=== PATIENT | female | born 1995 | race Caucasian/White ===

== ENCOUNTER 2022-07-27 15:53 | Outpatient (CLI) | payer BC, SELFPAY ==
[2022-07-29 17:01] LABS: Estradiol Premenol Female 68 pg/mL
[2022-07-30 03:02] LABS: Prolactin 8.5 ng/mL (2.8-29.2)
[2022-07-30 10:09] LABS: Follicle Stimulating Hormone 7.5 IU/L
[2022-08-02 19:06] LABS: 17-Hydroxyprogesterone HPLC 60.55 ng/dL (<=206.00)
[2022-08-02 22:54] LABS: Sex Hormone Binding Globulin 71 nmol/L (25-122); Testosterone Bioavailable 14.5 ng/dL (2.2-20.6); Testosterone, Free LC-MS/MS 4.8 pg/mL (0.8-7.4); Testosterone, LC-MS/MS 48 ng/dL (9-55)
== END 2022-07-27 15:54 | disposition home or self-care (01) ==
PROVIDERS: PCP Family Medicine; Visit Provider Registered Nurse
DX: N91.5 Oligomenorrhea, unspecified (principal)
CPT/HCPCS: 82670; 83001; 83498; 84146; 84270; 84402; 84403; 84443

== ENCOUNTER 2022-08-10 16:08 | Outpatient (CLI) | payer BC, SELFPAY ==
[2022-08-10 17:34] LABS: Cholesterol* 143 mg/dL (90-199)
[2022-08-10 17:35] LABS: Glucose* 80 mg/dL (60-115); HDL Cholesterol* 54 mg/dL (>=50); LDL Cholesterol Calculated 79 mg/dL (<100); Triglycerides* 48 mg/dL (40-149)
== END 2022-08-10 16:09 | disposition home or self-care (01) ==
PROVIDERS: PCP Family Medicine; Visit Provider Registered Nurse
DX: Z01.419 Encounter for gynecological examination (general) (routine) without abnormal findings (principal); Z13.6 Encounter for screening for cardiovascular disorders; Z13.1 Encounter for screening for diabetes mellitus
CPT/HCPCS: 80061; 82947

== ENCOUNTER 2022-08-30 10:35 | Outpatient (CLI) | payer BC, SELFPAY ==
--- NOTE | 2022-08-30 11:00 | CRLHL7_ITS ---
For Patients: As a result of the Century Cures Act, medical imaging exams and procedure reports are released immediately into your electronic medical record. You may view this report before your referring provider. If you have questions, please contact your health care provider. Indication: Infertility Technique: Hysterosalpingogram performed. Fluoroscopic time 1 minutes 31 seconds. IMPRESSION: Endometrial canal appears normal without filling defect. Normal cornua. Wispy contrast extends from the left fallopian tube into the peritoneal cavity. No definitive contrast opacification of the right fallopian tube. Dictated by Paevl Rangel MD @ 08/30/2022 12:23:28 PM (Electronically Signed)
--- NOTE | 2022-08-30 11:49 | P.GYNPRC_ITS ---
Procedure Note Time Seen by Provider: 11:30 Date Seen: 08/30/22 Procedure Details: DATE: August 30, 2022 PREPROCEDURE DIAGNOSIS: Infertility workup. POSTPROCEDURE DIAGNOSIS: 1. Normal uterine cavity 2. Patent left fallopian tube 3. Blocked right fallopian tube NAME OF PROCEDURE: Hysterosalpingogram. ANESTHESIA: None. COMPLICATIONS: None. PROCEDURE: Upon meeting the patient, she was already very tearful and anxious appearing. Her is with her for comfort. She states that she has a lot of anxiety around vaginal exams and states that during her delivery, she had the most excruciating pain with insertion of a Alexander catheter into her bladder. I discussed with her that this catheter will be placed into her uterus instead of bladder. The pain will be cameron to menstrual cramps. I also emphasized that she can asked me to stop at anytime. I did ask her if she still wish to proceed and she said yes. After obtaining consent, the patient was placed in the dorsal lithotomy position on the x-ray table. An open-sided bivalve speculum was introduced into the vagina and the cervix easily visualized. The cervix and vagina were then prepped with Betadine. The anterior lip of the cervix was grasped with a single-tooth tenaculum for traction. A balloon tipped double- lumen catheter was then gently inserted through the cervical opening into the uterine cavity to the level of the fundus. The balloon was insufflated with 3 mL of air. The tenaculum and speculum were removed. The patient was repositioned in the supine position, covered, and the radiologist was called to the room. Overall, patient did very well throughout the whole process, she did not have excess movements or express any pain out of proportion with exam. However, she continues to sob throughout but she states it's not due to pain but anxiety. She wishes to continue and hysterosalpingogram was then performed. A total of 30 cc of Optiray 300 water soluble contrast dye was injected through the double-lumen catheter under moderate pressure. There was immediate fill of the uterine cavity to the cornua and immediate fill of left fallopian tubes and free spillage of dye on left side with no dye spilling on the right side. Dye was injected x 2. The balloon was deflated. The catheter was removed. She endorses moderate cramping discomfort during and just after the procedure. She was discharged to home in stable condition.
== END 2022-08-30 10:36 | disposition home or self-care (01) ==
LOC: RAD 10:36
PROVIDERS: PCP Family Medicine; Visit Provider Registered Nurse
DX: N97.9 Female infertility, unspecified (principal)
CPT/HCPCS: 58340; 74740; A4649; Q9967

== ENCOUNTER 2022-09-13 08:07 | Outpatient (CLI) | payer BC, SELFPAY ==
[2022-09-15 17:46] LABS: Progesterone, HPLC-MS/MS 5.72 ng/mL
== END 2022-09-13 08:08 | disposition home or self-care (01) ==
LOC: NFLDREF 08:08
PROVIDERS: PCP Family Medicine; Visit Provider Registered Nurse
DX: Z31.9 Encounter for procreative management, unspecified (principal)
CPT/HCPCS: 84144

== ENCOUNTER 2023-09-06 13:34 | Outpatient (CLI) | payer BC, SELFPAY | END 2023-09-06 13:35 | disposition home or self-care (01) | LOC: NFLDREF 09-07 11:35 | PROVIDERS: PCP Family Medicine; Referring Provider Family Medicine; Visit Provider Physician Assistant | DX: R10.9 Unspecified abdominal pain (principal); N39.0 Urinary tract infection, site not specified; N94.6 Dysmenorrhea, unspecified | CPT/HCPCS: 87086; 87186 ==

== ENCOUNTER 2024-02-16 17:40 | Outpatient (CLI) | payer OTHER, SELFPAY | END 2024-02-16 17:41 | disposition home or self-care (01) | LOC: NFLDREF 02-19 11:30 | PROVIDERS: PCP Family Medicine; Referring Provider Family Medicine; Visit Provider Nurse Practitioner Family | DX: N30.90 Cystitis, unspecified without hematuria (principal) | CPT/HCPCS: 87086; 87186 ==

== ENCOUNTER 2024-03-26 07:46 | Emergency (ER) | payer OTHER, SELFPAY ==
[2024-03-26 07:53] VITALS: BP 107/72; PULSE 95; RESP 18; TEMP 36.8; O2SAT 99; BMI 25.6
--- NOTE | 2024-03-26 08:27 | CRLHL7_ITS ---
For Patients: As a result of the 21st Century Cures Act, medical imaging exams and procedure reports are released immediately into your electronic medical record. You may view this report before your referring provider. If you have questions, please contact your health care provider. INDICATION: RLQ pain and Right Flank Pain. N/V x9hrs. (Sic) COMPARISON: None available. TECHNIQUE: CT of the abdomen and pelvis with 69 cc of Isovue 370 intravenous contrast. Please note that all CT scans at this facility use dose modulation, iterative reconstruction, and/or weight-based dosing when appropriate to reduce radiation dose to as low as reasonably achievable. FINDINGS: ABDOMEN Liver: Normal hepatic attenuation. Too small to characterize round circumscribed homogeneous uniform low-density findings worrisome between segments 6 and 7 (2; 35) statistically likely to represent a cyst for which no further workup for ongoing imaging surveillance is indicated in the absence of an established history of malignancy and in the absence of a significant underlying liver disease. No suspicious focal hepatic lesion. No intrahepatic biliary ductal dilatation. Patent portal and hepatic veins. Gallbladder: Normal gallbladder size. Normal common duct caliber. No pericholecystic inflammatory changes. Pancreas: Normal pancreatic attenuation. No focal lesion. Normal duct caliber. No peripancreatic inflammatory changes. Spleen: Normal splenic attenuation. No suspicious focal lesion. Patent splenic artery and vein. Adrenal Glands: Symmetrical adrenal glands. No focal lesion of significance. Kidneys: Nonuniform asymmetric dilatation of the right ureter to the level of the ureterovesical junction without an obstructing lesion identified or abrupt point of transition. Diffuse circumferential right ureteral mural hyperenhancement with associated enhancement of the urothelium right extrarenal pelvis. Bilateral extrarenal pelves. Normal bilateral renal attenuation. No suspicious focal lesion. No obstructing urolith. Patent renal arteries and veins. Gastrointestinal tract: Normal caliber, attenuation and wall thickness of the gastrointestinal tract. No inflammatory changes. Normal mesentery. Normal appendix. Vascular: Abdominal aorta and its major proximal branches including the celiac, superior mesenteric, inferior mesenteric, renal, and bilateral common iliac arteries are patent. Inferior vena cava, portal and superior mesenteric veins are patent. Additional findings: No incidental adenopathy. No significant ascites, free fluid or pneumoperitoneum. PELVIS No bladder lesion is identified. Diffuse enlargement and heterogeneity of the uterus which could be due to adenomyosis. This can be further characterized with a nonemergent pelvic ultrasound if clinically appropriate. No abnormal free fluid. No incidental adenopathy. SKELETON AND BODY WALL No acute or suspicious incidental findings. Incidental congenital/developmental posterior midline sagittal cleft of the T11 vertebral body. LOWER THORAX Right lower lobe dependent hypoventilatory changes are noted incidentally. Partially included lower thoracic wall, lungs, pleural spaces and mediastinum are otherwise without significant incidental findings. IMPRESSION: 1. Diffuse circumferential right ureteral mural hyperenhancement with associated enhancement of the urothelium right extrarenal pelvis disc proximal to the ureteropelvic junction. Findings are consistent with pyeloureteritis. Nonuniform asymmetric dilatation of the right ureter to the level of the ureterovesical junction without an obstructing lesion identified or abrupt point of transition. This is also consistent with a urinary tract infection. 2. No evidence of right pyelonephritis. 3. Incidental findings as above. Please note that all CT scans at this facility use dose modulation, iterative reconstruction, and/or weight-based dosing when appropriate to reduce radiation dose to as low as reasonably achievable. Dictated by Jose C Randolph MD @ 03/26/2024 10:03:05 AM (Electronically Signed)
[2024-03-26 08:28] LABS: Appearance Urine Cloudy (Clear); Bilirubin Urine Negative (Negative); Blood Urine Trace-intact (Negative); Color Urine Yellow (Yellow); Glucose Urine Negative (Negative); Ketones Urine Negative (Negative); Leukocyte Esterase Urine 1+ (Negative); Nitrite Urine Negative (Negative); Protein Urine Negative (Negative); Specific Gravity Urine 1.015 (1.000-1.030); Urobilinogen Urine 0.2 (0.2-1.0); pH Urine 7.5 (5.0-8.5)
--- NOTE | 2024-03-26 08:37 | ED.ABDPAIN ---
HPI - Abdominal Pain General Date Seen: 03/26/24 Chief Complaint: Abdominal Pain Stated Complaint: Severe abdominal pain Time Seen by Provider: 03/26/24 08:02 Source: patient Mode of arrival: ambulatory Limitations: no limitations History of Present Illness HPI narrative: Patient is a 28-year-old female presenting to the emergency department for right lower quadrant abdominal pain. She states the pain started last night around 01:00 has been consistent throughout the morning. She described as a sharp constant pain. Initially started right lower quadrant she does states not radiating into her groin and her right flank. Denies ever having symptoms like this before. No previous abdominal surgeries. No history of kidney stones. Had some urinary discomfort this morning but then states she has had no pain with urination since then. Has not noticed any hematuria. Denies vaginal discharge or bleeding. Has been nauseated but has not had any vomiting yet. Has not eaten anything since yesterday evening. Did drink a few sips of water about 05:00. Has had fevers and chills since she woke up. States she was completely asymptomatic yesterday and everything happened suddenly and woke her up from sleep. Had a normal bowel movement yesterday but has not had a bowel movement yet today. Related Data Home Medications ?Medication ?Instructions ?Recorded ?Confirmed lorazepam 0.5 mg tablet (Ativan) 0.5 mg PO BID PRN 03/10/22 03/26/24 [id number] PO 09/06/23 02/16/24 [Midol Complete] Previous Rx's ?Medication ?Instructions ?Recorded cefpodoxime 200 mg tablet 200 mg PO BID 10 days #20 tabs 03/26/24 metoclopramide HCl 10 mg tablet 10 mg PO Q6H PRN nausea and 03/26/24 (Reglan) vomiting #20 tabs oxycodone 5 mg tablet 5 mg PO Q6H PRN pain #12 tabs 03/26/24 Allergies Allergy/AdvReac Type Severity Reaction Status Date / Time ondansetron [From Zofran] Allergy Severe Difficulty Verified 03/26/24 08:00 Breathing Review of Systems Status of ROS Reports: 10 or more systems reviewed and unremarkable except as noted in History and below [facility] Medical History Eosinophilic esophagitis (11/29/21) ?K20.0 - Eosinophilic esophagitis (ICD-10) Bipolar I disorder ?F31.9 - Bipolar disorder, unspecified (ICD-10) History of suicidal ideation (10/2015) ?Z86.59 - Personal history of other mental and behavioral disorders (ICD-10) History of migraine headaches ?Z86.69 - Personal history of other diseases of the nervous system and sense organs (ICD-10) Lactose intolerance ?E73.9 - Lactose intolerance, unspecified (ICD-10) Hx of concussion ?Z87.820 - Personal history of traumatic brain injury (ICD-10) GERD (gastroesophageal reflux disease) ?K21.9 - Gastro-esophageal reflux disease without esophagitis (ICD-10) Hx of dysmenorrhea ?Z87.42 - Personal history of other diseases of the female genital tract (ICD-10) History of depression ?Z86.59 - Personal history of other mental and behavioral disorders (ICD-10) History of anxiety ?Z86.59 - Personal history of other mental and behavioral disorders (ICD-10) Surgical History History of endoscopy (11/29/21) ?Z98.890 - Other specified postprocedural states (ICD-10) History of arthroscopy of both knees ?Z98.890 - Other specified postprocedural states (ICD-10) Family History Mother Alcohol abuse Depression Migraines Anxiety Sister ADHD Depression Anxiety Learning disorder Father Alcohol abuse Aunt Depression Anxiety Suicide attempt Paternal Grandmother Dementia Social History Narrative: Vapes. . 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 Smoking Status: Never smoker Little interest or pleasure in doing things: several days Feeling down, depressed, or hopeless: several days Exam Narrative: Exam Narrative: Const: Well-nourished, Well-developed, in moderate distress Eyes: PERRL, no conjunctival injection, and symmetrical lids HENT: Atraumatic external nose and ears. Moist mucous membranes. Neck: Symmetric, trachea midline, No thyromegaly. CVS: RRR, No murmurs or gallops. Peripheral pulses 2+ and equal in all extremities RESP: Unlabored respiratory effort. Clear to auscultation bilaterally. GI: Right lower quadrant tenderness, Nondistended, No rebound or guarding. MSK:Extremities w/o deformity, Normal Active ROM Skin: Warm, Dry. No rashes or lesions. Neuro: Normal Muscle tone, No focal neurological deficits. Psych: Awake, Alert, & Oriented x3. Appropriate mood and affect. Const: Vital Signs, click to edit/add: Vital Signs - 24 hr 03/26/24 07:53 03/26/24 09:58 Temperature 98.3 F Pulse Rate [Right Pulse Oximeter] 95 86 Respiratory Rate 18 18 Blood Pressure [Ri t Upper Arm] 107/72 92/51 L Pulse Oximetry 99 100 Oxygen Delivery Me thod Room Air Room Air Course Vital Signs Vital signs: Initial Vital Signs Temperature 98.3 F 03/26/24 07:53 Temperature Source Oral 03/26/24 07:53 Pulse Rate 95 03/26/24 07:53 Pulse Rhythm Regular 03/26/24 07:53 Respiratory Rate 18 03/26/24 07:53 Blood Pressure 107/72 03/26/24 07:53 Blood Pressure Mean 83 03/26/24 07:53 Blood Pressure Position Sitting 03/26/24 07:53 Pulse Oximetry 99 03/26/24 07:53 Oxygen Delivery Method Room Air 03/26/24 07:53 Vital Signs Temperature 98.3 F 03/26/24 07:53 Pulse Rate 95 03/26/24 07:53 Respiratory Rate 18 03/26/24 07:53 Blood Pressure 107/72 03/26/24 07:53 Pulse Oximetry 99 03/26/24 07:53 Oxygen Delivery Method Room Air 03/26/24 07:53 Temperature 98.3 F 03/26/24 07:53 Pulse Rate 86 03/26/24 09:58 Respiratory Rate 18 03/26/24 09:58 Blood Pressure 92/51 L 03/26/24 09:58 Pulse Oximetry 100 03/26/24 09:58 Oxygen Delivery Method Room Air 03/26/24 09:58 Medications Administered Medications: Discontinued Medications Generic Name Dose Route Start Last Admin Trade Name Freq PRN Reason Stop Dose Admin Diphenhydramine HCl 25 mg 03/26/24 08:26 03/26/24 09:00 Diphenhydramine 50 Mg/Ml Inj IVP 03/26/24 08:27 25 mg ONCE ONE Administration Lactated Ringer's 1,000 mls @ 1,000 mls/hr 03/26/24 08:26 03/26/24 10:30 Lactated Ringers 1000 Ml IV 03/26/24 09:25 Infused .Q1H ONE Infusion Ceftriaxone Sodium 1 gm/ 100 mls @ 200 mls/hr 03/26/24 10:21 03/26/24 11:10 Sodium Chloride IVPB 03/26/24 10:22 Infused ONCE ONE Infusion Metoclopramide HCl 10 mg 03/26/24 08:26 03/26/24 08:54 Metoclopramide Hcl 5 Mg/Ml Inj IVP 03/26/24 08:27 10 mg ONCE ONE Administration Morphine Sulfate 4 mg 03/26/24 08:26 03/26/24 09:04 Morphine 4 Mg/Ml Inj IVP 03/26/24 08:27 4 mg ONCE ONE Administration MDM - Abdominal Pain MDM Narrative Medical decision making narrative: Patient is a 28-year-old female presenting to emergency department for right lower quadrant abdominal pain. This time differential includes appendicitis, nephrolithiasis, constipation, colitis. Seems unlikely to be ovarian torsion concerning location but I am considering this at this time. She does states she has been told she has ovarian cyst in the past. Very unlikely to be a SBO considering she has no previous abdominal surgeries. We will do a CT scan for further evaluation. Will also order CBC, CMP, COVID, urinalysis, urine test. Will also give her L of fluids and and morphine for pain. She cannot take Zofran and Reglan was given for nausea and some diphenhydramine to help prevent the side effects. Patient's symptoms improved with the medication. Lab work returned showing signs of a UTI. CBC shows no concerning abnormalities. CMP shows no concerning abnormalities. COVID and flu were negative. Urine test is negative. CT reviewed by myself and the radiologist shows signs of pyeloureteritis. There is no signs of obstruction at this time. I do not believe she she needs transferred. We did try some p.o. intake and she was able to tolerate it well. Did give her a g of Rocephin while she was in the emergency department. She does feel comfortable discharging home and will send her home with oxycodone and Reglan. Of note on the CT scan also did notice a large amount of stool in the right lower quadrant but she states she has been having normal bowel movements and has not had any concerned about constipation. I will have her take stool softeners while she is on the provided medications though. She is agreeable to this plan. Lab Data Labs: Lab Results 03/26/24 03/26/24 03/26/24 Range/Units 08:05 08:27 09:10 WBC 10.28 (4.50-11.00) K/uL RBC 4.83 (4.00-5.20) m/uL Hgb 13.8 (12.0-16.0) gm/dL Hct 41.4 (33.0-51.0) % MCV 86 (80-100) fL MCH 29 (26-34) pg MCHC 33 (32-36) gm/dL RDW Coeff of Brandyn 12.7 (11.5-15.5) % Plt Count 240 (140-440) K/uL Neut % (Auto) 71.3 (42.0-72.0) % Lymph % (Auto) 17.0 L (20-44) % [place] % (Auto) 7.5 (0.0-11.0) % Eos % (Auto) 3.5 (0.0-7.0) % Baso % (Auto) 0.5 (0.0-3.0) % Neut # (Auto) 7.33 H (1.7-7.0) K/uL Lymph # (Auto) 1.70 (0.90-2.90) K/uL [place] # (Auto) 0.80 (0.00-0.90) K/UL Eos # (Auto) 0.36 (0.00-0.50) K/uL Baso # (Auto) 0.05 (0.00-0.30) K/uL Abs Immat Gran (auto) 0.02 (0.00-0.30) K/uL Imm/Tot Granulo (auto) 0.2 % Sodium 136 (135-149) mmol/L Potassium 4.0 (3.6-5.1) mmol/L Chloride 106 (96-114) mmol/L Carbon Dioxide 25 (20-32) mmol/L Anion Gap 5 L (7-15) mEq/L BUN 7 (5-24) mg/dL Creatinine 0.6 (0.5-1.5) mg/dL Estimated Creat Clear 112.38 Estimated GFR 127 ml/min Glucose 91 (60-115) mg/dL Calcium 8.8 (8.4-10.6) mg/dL Total Bilirubin 0.9 (0.1-1.5) mg/dL AST 22 (12-35) U/L ALT 10 (4-35) U/L Alkaline Phosphatase 53 (40-150) U/L Total Protein 7.2 (6.0-8.3) g/dL Albumin 4.2 (3.3-5.0) g/dL Urine Color Yellow (Yellow) Urine Appearance Cloudy A (Clear) Urine pH 7.5 (5.0-8.5) Ur Specific [place] 1.015 (1.000-1.030) Urine Protein Negative (Negative) Urine Glucose (UA) Negative (Negative) Urine Ketones Negative (Negative) Urine Blood Trace-intact A (Negative) Urine Nitrite Negative (Negative) Urine Bilirubin Negative (Negative) Urine Urobilinogen 0.2 (0.2-1.0) Ur Leukocyte Esterase 1+ A (Negative) Urine RBC 2-5 A (0-2) Urine WBC 25-50 A (0-5) Ur Squamous Epith Cells Few (None-Few) Urine Bacteria Many A (None) Urine HCG, Qual Negative (Negative) SARS-CoV-2 (PCR) Negative SARS-CoV-2 (Negative) Influenza Type A (PCR) Negative PCR FLU A (Negative) Influenza Type B (PCR) Negative PCR FLU B (Negative) Imaging Data CT scan abdomen and pelvis: Attestation: I have reviewed the pertinent imaging results. Radiologist's impression: 1. Diffuse circumferential right ureteral mural hyperenhancement with associated enhancement of the urothelium right extrarenal pelvis disc proximal to the ureteropelvic junction. Findings are consistent with pyeloureteritis. Nonuniform asymmetric dilatation of the right ureter to the level of the ureterovesical junction without an obstructing lesion identified or abrupt point of transition. This is also consistent with a urinary tract infection. 2. No evidence of right pyelonephritis. 3. Incidental findings as above. Please note that all CT scans at this facility use dose modulation, iterative reconstruction, and/or weight-based dosing when appropriate to reduce radiation dose to as low as reasonably achievable. Dictated by Jose C Randolph MD @ 03/26/2024 10:03:05 AM Discharge Plan Discharge Clinical Impression: Pyelonephritis Patient Disposition: Home, Self-Care Condition: Improved Instructions: Kidney Infection (ED) Additional Instructions: Appears that you have pyelonephritis. Continue to take Tylenol ibuprofen at home and using oxycodone as needed for your pain. CT scan appears to show signs of constipation also and 9 recommend you take stool softeners while you are taking the oxycodone. Will also start you on antibiotics. Reglan will be prescribed for nausea. If it makes you feel very jittery take some Benadryl with it. Return to emergency department for new or worsening symptoms. Prescriptions: New oxycodone 5 mg tablet 5 mg PO Q6H PRN (Reason: pain) Qty: 12 0RF metoclopramide HCl [Reglan] 10 mg tablet 10 mg PO Q6H PRN (Reason: nausea and vomiting) Qty: 20 0RF cefpodoxime 200 mg tablet 200 mg PO BID 10 Days Qty: 20 0RF Rx Instructions: must administer with a meal/food No Action [id number] [Midol Complete] PO lorazepam [Ativan] 0.5 mg tablet 0.5 mg PO BID PRN Follow Up/Referrals: Pavel Hartman MD [Primary Care Provider] - Stand Alone Forms: [facility] Info Instructions
[2024-03-26 08:40] LABS: Bacteria Urine Many; Squamous Epithelial Cell Urine Few (None-Few); WBC Urine 25-50 (0-5)
[2024-03-26] MEDS: METOCLOPRAMIDE HCL 5 MG/ML INJ 10 MG IVP (08:54)
[2024-03-26] MEDS: diphenhydrAMINE 50 MG/ML inj 25 MG IVP (09:00)
[2024-03-26] MEDS: MORPHINE 4 MG/ML INJ IVP (09:04)
[2024-03-26] MEDS: LACTATED RINGERS 1000 ML 1,000 ML IV (09:08)
[2024-03-26 09:21] LABS: Basophils Absolute Auto 0.05 K/uL (0.00-0.30); Basophils Percent Auto 0.5 % (0.0-3.0); Eosinophils Absolute Auto 0.36 K/uL (0.00-0.50); Eosinophils Percent Auto 3.5 % (0.0-7.0); Hematocrit 41.4 % (33.0-51.0); Hemoglobin* 13.8 gm/dL (12.0-16.0); Immature Granulocytes Abs Auto 0.02 K/uL (0.00-0.30); Immature Granulocytes Pct Auto 0.2 %; Mean Corpuscular HGB Conc 33 gm/dL (32-36); Mean Corpuscular Hemoglobin 29 pg (26-34); Mean Corpuscular Volume 86 fL (80-100); Monocytes Percent Auto 7.5 % (0.0-11.0); Neutrophils Absolute Auto 7.33 K/uL (1.7-7.0); Neutrophils Percent Auto 71.3 % (42.0-72.0); Platelet Count* 240 K/uL (140-440); RDW Coefficient of Variation % 12.7 % (11.5-15.5); Red Blood Count 4.83 m/uL (4.00-5.20); White Blood Count* 10.28 K/uL (4.50-11.00)
[2024-03-26 09:25] LABS: Slide Review Reflex No
[2024-03-26 09:26] LABS: Ur HCG Qualitative* Negative (Negative)
[2024-03-26 09:38] LABS: Albumin* 4.2 g/dL (3.3-5.0)
[2024-03-26 09:39] LABS: Chloride* 106 mmol/L (96-114); Sodium* 136 mmol/L (135-149)
[2024-03-26 09:41] LABS: Anion Gap 5 mEq/L (7-15); Aspartate Amino Transferase* 22 U/L (12-35); Bilirubin Total* 0.9 mg/dL (0.1-1.5); Carbon Dioxide* 25 mmol/L (20-32); Creatinine* 0.6 mg/dL (0.5-1.5); Est. Creatinine Clearance* 112.38; Estimated Glomerular Filt Rate 127 ml/min
[2024-03-26 09:42] LABS: Alanine Aminotransferase* 10 U/L (4-35); Alkaline Phosphatase* 53 U/L (40-150); Blood Urea Nitrogen* 7 mg/dL (5-24); Calcium* 8.8 mg/dL (8.4-10.6); Glucose* 91 mg/dL (60-115); Total Protein* 7.2 g/dL (6.0-8.3)
[2024-03-26 09:58] VITALS: BP 92/51; PULSE 86; RESP 18; O2SAT 100
[2024-03-26 09:58] LABS: PCR FLU A Negative PCR FLU A (Negative); PCR FLU B Negative PCR FLU B (Negative); SARS PCR* Negative SARS-CoV-2 (Negative)
[2024-03-26] MEDS: cefTRIAXone 1 GM in 0.9 % SODIUM CHLORIDE Mini-bag 100 ML IVPB (10:35)
[2024-03-26 11:26] VITALS: BP 94/54
== END 2024-03-26 11:32 | disposition home or self-care (01) ==
PROVIDERS: Emergency Provider Student in an Organized Health Care Education/Training Program; PCP Family Medicine
DX: N10 Acute pyelonephritis (principal)
CPT/HCPCS: 36415; 74177; 80053; 81001; 81025; 85025; 87086; 87186; 87631; 96365; 96375; 99283; 99284; J0696; J1200; J2270; J2765; J7120; Q9967

== ENCOUNTER 2025-05-12 13:55 | Emergency (ER) | payer OTHER, SELFPAY ==
[2025-05-12 14:02] VITALS: BP 110/73; PULSE 79; RESP 28; TEMP 36.9; O2SAT 99; BMI 28.3
--- NOTE | 2025-05-12 14:20 | ED_ITS ---
HPI - General Adult General Chief complaint: Urogenital Problems, Female Stated complaint: pain in Stomach and back Time Seen by Provider: 05/12/25 14:08 History of Present Illness HPI narrative: This 29-year-old female comes in reporting severe abdominal pain with vaginal bleeding. She states that she has a history of endometriosis and has had pain with menses. She currently reports a couple days of heavy menstrual bleeding and states that she has had 3 episodes of bleeding in the past month. She does not think she is but is not sure. She does not report any fevers. She does not indicate any symptoms of urinary tract infection. She is crying with discomfort from her abdominal pain. Related Data Home Medications ?Medication ?Instructions ?Recorded ?Confirmed [id number] PO 09/06/23 02/16/24 [Midol Complete] Previous Rx's ?Medication ?Instructions ?Recorded ketorolac 10 mg tablet 10 mg PO TID 5 days #15 tabs 05/12/25 Allergies Allergy/AdvReac Type Severity Reaction Status Date / Time ondansetron (From Zofran) Allergy Severe Difficulty Verified 03/26/24 08:00 Breathing Review of Systems Status of ROS: Reports: 10 or more systems reviewed and unremarkable except as noted in History and below Narrative: Constitutional: No fevers, no weight gain or loss. Eyes: No discharge. No vision changes. HENT: No congestion, no sore throat, no ear pain. Cardiovascular: No chest pain, no palpitations. Respiratory: No shortness of breath, no wheezes, no cough. Gastrointestinal: No diarrhea. Lower abdominal pain with nausea and some vomiting. Genitourinary: No dysuria, no hematuria. Musculoskeletal: Normal range of motion. Skin: No rashes, no pruritis. Neurological: No dizziness, weakness, sensory change, speech change. Endo/Heme/Allergies: No bruising or bleeding. No polydipsia. Pysch: no suicidality, no anxiety, no insomnia. All other systems reviewed and are negative. [facility] Medical History Eosinophilic esophagitis (11/29/21) ?K20.0 - Eosinophilic esophagitis (ICD-10) Bipolar I disorder ?F31.9 - Bipolar disorder, unspecified (ICD-10) History of suicidal ideation (10/2015) ?Z86.59 - Personal history of other mental and behavioral disorders (ICD-10) History of migraine headaches ?Z86.69 - Personal history of other diseases of the nervous system and sense organs (ICD-10) Lactose intolerance ?E73.9 - Lactose intolerance, unspecified (ICD-10) Hx of concussion ?Z87.820 - Personal history of traumatic brain injury (ICD-10) GERD (gastroesophageal reflux disease) ?K21.9 - Gastro-esophageal reflux disease without esophagitis (ICD-10) Hx of dysmenorrhea ?Z87.42 - Personal history of other diseases of the female genital tract (ICD-10) History of depression ?Z86.59 - Personal history of other mental and behavioral disorders (ICD-10) History of anxiety ?Z86.59 - Personal history of other mental and behavioral disorders (ICD-10) Surgical History History of endoscopy (11/29/21) ?Z98.890 - Other specified postprocedural states (ICD-10) History of arthroscopy of both knees ?Z98.890 - Other specified postprocedural states (ICD-10) Family History Mother Alcohol abuse Depression Migraines Anxiety Sister ADHD Depression Anxiety Learning disorder Father Alcohol abuse Aunt Depression Anxiety Suicide attempt Paternal Grandmother Dementia Social History Narrative: Vapes. . 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 Smoking Status: Never smoker Do you use any of these nicotine containing products: None How often do you have a drink containing alcohol: never How often do you have six or more drinks on one occasion: Never AUDIT-C Alcohol total score: 0 Non-prescribed substance use: denies use Exam Narrative: Exam Narrative: Constitutional: Well-developed, well-nourished, no acute distress. HEENT: Normocephalic, atraumatic. Neck: Normal range of motion. Nontender. Supple. Heart: Regular. No murmurs. Normal rate. Intact distal pulses. Lungs: Clear to auscultation. No chest discomfort. No wheezes, rhonchi, or rales. Abdomen: Normal bowel sounds. Pain across the lower abdomen. No rebound tenderness. Genitalia: Deferred. Back: No midline tenderness. Normal range of motion. Extremities: Normal range of motion. No injury. Skin: Intact. No rash. Warm. No erythema or pallor. Neurologic: No altered sensation. No weakness. Alert and oriented. Psychiatric: No suicidality. No anxiety or depression. No insomnia. Nursing notes and vitals signs are reviewed. Const: Vital Signs, click to edit/add: Vital Signs - 24 hr 05/12/25 14:02 05/12/25 15:01 05/12/25 15:17 Temperature 98.5 F Pulse Rate 72 91 Pulse Rate [Pulse Oximeter] 79 Respiratory Rate 28 H 18 16 Blood Pressure [Ri ght Upper Arm] 110/73 Pulse Oximetry 99 98 99 Oxygen Delivery Me thod Room Air Course Vital Signs Vital signs: Initial Vital Signs Temperature 98.5 F 05/12/25 14:02 Temperature Source Temporal Artery Scan 05/12/25 14:02 Pulse Rate 79 05/12/25 14:02 Respiratory Rate 28 H 05/12/25 14:02 Blood Pressure 110/73 05/12/25 14:02 Blood Pressure Mean 85 05/12/25 14:02 Blood Pressure Position Sitting 05/12/25 14:02 Pulse Oximetry 99 05/12/25 14:02 Oxygen Delivery Method Room Air 05/12/25 14:02 Vital Signs Temperature 98.5 F 05/12/25 14:02 Pulse Rate 79 05/12/25 14:02 Respiratory Rate 28 H 05/12/25 14:02 Blood Pressure 110/73 05/12/25 14:02 Pulse Oximetry 99 05/12/25 14:02 Oxygen Delivery Method Room Air 05/12/25 14:02 Temperature 98.5 F 05/12/25 14:02 Pulse Rate 91 05/12/25 15:17 Respiratory Rate 16 05/12/25 15:17 Blood Pressure 110/73 05/12/25 14:02 Pulse Oximetry 99 05/12/25 15:17 Oxygen Delivery Method Room Air 05/12/25 14:02 Medications Administered Medications: Discontinued Medications Generic Name Dose Route Start Last Admin Trade Name Freq PRN Reason Stop Dose Admin Hydromorphone HCl 0.5 mg 05/12/25 14:18 05/12/25 14:43 Hydromorphone 0.5 Mg/0.5 Ml Inj IVP 05/12/25 14:19 0.5 mg ONCE ONE Administration Ketorolac Tromethamine 15 mg 05/12/25 14:35 05/12/25 14:44 Ketorolac 15 Mg/Ml Inj IVP 05/12/25 14:36 15 mg ONCE ONE Administration Metoclopramide HCl 10 mg 05/12/25 14:18 05/12/25 14:44 Metoclopramide 10 Mg Tablet PO 05/12/25 14:19 10 mg ONCE ONE Administration Medical Decision Making MDM Narrative Medical decision making narrative: This patient comes in with abdominal pain and vaginal bleeding as described above. She states that it is a menses with extra a symptoms of increased bleeding and severe pain. She reports I history of endometriosis and states that she does get worsening symptoms at these times. She arrives here with reassuring vital signs. She initially was in significant distress with her pain. An IV was established where she did receive IV doses of Toradol 15 mg and Dilaudid 0.5 mg. She also received an oral dose of raglan stating that she has an allergy to Zofran. These treatments brought significant relief to her symptoms. Her blood returns with reassuring findings. She is not showing findings of anemia or infection. Urinalysis shows hematuria but no sign of infection. Lab Data Labs: Lab Results 05/12/25 05/12/25 Range/Units 14:25 15:13 WBC 10.59 (4.50-11.00) K/uL RBC 4.79 (4.00-5.20) m/uL Hgb 13.9 (12.0-16.0) gm/dL Hct 40.9 (33.0-51.0) % MCV 85 (80-100) fL MCH 29 (26-34) pg MCHC 34 (32-36) gm/dL RDW Coeff of Brandyn 12.2 (11.5-15.5) % Plt Count 258 (140-440) K/uL Neut % (Auto) 84.7 H (42.0-72.0) % Lymph % (Auto) 9.1 L (20-44) % Owen % (Auto) 3.8 (0.0-11.0) % Eos % (Auto) 1.3 (0.0-7.0) % Baso % (Auto) 0.3 (0.0-3.0) % Neut # (Auto) 9.00 H (1.7-7.0) K/uL Lymph # (Auto) 1.00 (0.90-2.90) K/uL Owen # (Auto) 0.40 (0.00-0.90) K/UL Eos # (Auto) 0.14 (0.00-0.50) K/uL Baso # (Auto) 0.03 (0.00-0.30) K/uL Abs Immat Gran (auto) 0.09 (0.00-0.30) K/uL Imm/Tot Granulo (auto) 0.8 % Sodium 134 L (135-149) mmol/L Potassium 3.7 (3.6-5.1) mmol/L Chloride 101 (96-114) mmol/L Carbon Dioxide 22 (20-32) mmol/L Anion Gap 11 (7-15) mEq/L BUN 14 (5-24) mg/dL Creatinine 0.7 (0.5-1.5) mg/dL Estimated Creat Clear 95.48 Estimated GFR 121 ml/min Glucose 98 (60-115) mg/dL Calcium 8.6 (8.4-10.6) mg/dL HCG, Qual Negative (Negative) Urine Color Dark yellow (Yellow) Urine Appearance Clear (Clear) Urine pH 5.5 (5.0-8.5) Ur Specific Schneider >= 1.030 (1.000-1.030) Urine Protein Trace A (Negative) Urine Glucose (UA) Negative (Negative) Urine Ketones 3+ A (Negative) Urine Blood 2+ A (Negative) Urine Nitrite Negative (Negative) Urine Bilirubin 1+ A (Negative) Urine Urobilinogen 0.2 (0.2-1.0) Ur Leukocyte Esterase Negative (Negative) Urine RBC 25-50 A (0-2) Urine WBC 0-2 (0-5) Ur Squamous Epith Cells Moderate A (None-Few) Amorphous Sediment Few A (None) Urine Bacteria None (None) Discharge Plan Discharge Clinical Impression: Abdominal pain, Heavy menstrual bleeding Patient Disposition: Home w/ Parent or Adult Condition: Improved Additional Instructions: Take medication as needed and directed. Follow-up with OBGYN for further diagnosis and management as needed. Return if worsening. Prescriptions: New ketorolac 10 mg tablet 10 mg PO TID 5 Days Qty: 15 0RF No Action [id number] [Midol Complete] PO Follow Up/Referrals: Pavel Hartman MD [Primary Care Provider, Family Practice] Stand Alone Forms: [employer] Info Instructions
[2025-05-12 14:35] LABS: Hematocrit* 40.9 % (33.0-51.0); Hemoglobin* 13.9 gm/dL (12.0-16.0); Immature Granulocytes Abs Auto 0.09 K/uL (0.00-0.30); Immature Granulocytes Pct Auto 0.8 %; Mean Corpuscular HGB Conc 34 gm/dL (32-36); Mean Corpuscular Hemoglobin 29 pg (26-34); Mean Corpuscular Volume 85 fL (80-100); RDW Coefficient of Variation % 12.2 % (11.5-15.5); Red Blood Count* 4.79 m/uL (4.00-5.20); White Blood Count* 10.59 K/uL (4.50-11.00)
[2025-05-12 14:39] LABS: Lymphocytes Absolute Auto 1.00 K/uL (0.90-2.90)
[2025-05-12 14:40] LABS: Slide Review Reflex No
[2025-05-12] MEDS: METOCLOPRAMIDE 10 MG TABLET PO (14:44)
[2025-05-12 14:53] LABS: Chloride* 101 mmol/L (96-114)
[2025-05-12 14:54] LABS: Potassium* 3.7 mmol/L (3.6-5.1); Sodium* 134 mmol/L (135-149)
[2025-05-12 14:57] LABS: Anion Gap 11 mEq/L (7-15); Blood Urea Nitrogen* 14 mg/dL (5-24); Calcium* 8.6 mg/dL (8.4-10.6); Carbon Dioxide* 22 mmol/L (20-32); Creatinine* 0.7 mg/dL (0.5-1.5); Est. Creatinine Clearance* 95.48; Estimated Glomerular Filt Rate 121 ml/min; Glucose* 98 mg/dL (60-115)
[2025-05-12 15:01] VITALS: PULSE 72; RESP 18; O2SAT 98
[2025-05-12 15:17] VITALS: PULSE 91; RESP 16; O2SAT 99
[2025-05-12 15:22] LABS: Appearance Urine Clear (Clear)
[2025-05-12 15:30] LABS: HCG Qualitative Serum* Negative (Negative)
== END 2025-05-12 15:51 | disposition home or self-care (01) ==
PROVIDERS: Emergency Provider Emergency Medicine Emergency Medical Services; PCP Family Medicine
DX: N92.0 Excessive and frequent menstruation with regular cycle (principal); R10.9 Unspecified abdominal pain
CPT/HCPCS: 36415; 80048; 81001; 84703; 85025; 94761; 96374; 96375; 99284; A9270; J1171; J1885

== ENCOUNTER 2025-06-24 20:23 | Emergency (ER) | payer SELFPAY ==
--- OUTSIDE RECORDS SUMMARY | 2025-06-24 20:25 | XMS_ITS | Clinical Summary ---
Author Organization [email or web address] [facility] Address [address] [place] [id number] Care Team Providers Care Traditional [facility] Health Practitioner Name Role Phone [facility] - Primary Ca re Provider Bertha Jiame MD Unavailable Allergies Active Allergy Reactions Criticality Noted Date Comments Lactase Nausea And Vomiting 01/13/2015 Ondansetron Itching Low 10/29/2015 Medications ibuprofen (ADVIL; MOTRIN) 600 mg tabletIndicatio ns:Acute bilateral low back pain without sciatica Take 1 tablet by mouth 4 times daily if needed. Maximum of 3200 mg in 24 hours. 30 tablet 01/31/2019 Active omeprazole (PRILOSEC-OTC) 20 mg tablet Take 20 mg by mouth once daily. Active MULTIVITAMIN ORAL Take 1 Tablet by mouth once daily. Active Active Problems Problem Noted Date Diagnosed Date premature rupture of membranes (PPROM) with onset of labor within 24 hours of rupture in third trimester, antepartum 04/26/2016 Adjustment disorder with disturbance of emotion 10/27/2015 Marital or partner relational problem 10/27/2015 Major depressive disorder 01/18/2015 Family conflict 01/18/2015 Anxiety and depression 01/13/2015 Unspecified constipation 10/19/2007 Immunizations Immunization Administration Dates Next Due AMB Influenza, IIV3 (Age >=3 years)(Flu Clinic Only) 05/16/2011,05/17/2010 DTaP 11/14/2001, 1,06/09/1998,1997,02/03/1998 HIB-HepB (Comvax) 11/14/2001,04/07/1998,02/03/19 98 Hepatitis A (Peds) 05/01/2009,10/19/2007 Inactivated Polio Vaccine 11/14/2001,,04/07/1998,1997 Influenza, IIV3 (Age >=3 years) 05/01/2009 MMR 11/14/2001,01/21/1999 Tdap 05/01/2009 Varicella Vaccine 10/19/2007,01/21/1999 Family History Medical History Relation Name Comments Psychiatric illness Other Asthma No Family History Cancer-breast No Family History Diabetes No Family History Heart Disease No Family History Relation Name Status Comments Other Social History Tobacco Use Types Packs/Day Years Used Date Smoking Tobacco: Some Days Cigarettes Smokeless Tobacco: Never Tobacco Cessation:Ready to Q uit: No; Counseling Given: Yes Comments:dad, boyfriends parents; former smoker quit ~05/2015 Alcohol Use Standard Drinks/Week Comments No 0 (1 standard drink = 0.6 oz pure alcohol) hasn't drank in several months. 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 Gender Identity Not on file Sexual Orientation Not on file Obstetrics History Para Term AB IAB SAB Ectopic Multiple Livin g Live Births 1 0 0 0 0 0 0 0 Date Outcome GA Total Labor Labor/2nd/3rd Weight Sex Type Anes PTL Maylin A1 A5 Name Clin Last Filed Vital Signs Vital Sign Reading Time Taken Comments Blood Pressure 129/62 11/29/2021 10:30 AM CDT Pulse 86 11/29/2021 9:30 AM CDT Temperature 36.6 C (97.9 F) 11/29/2021 8:57 AM CDT Respiratory Rate 18 11/29/2021 10:30 AM CDT Oxygen Saturation 100% 11/29/2021 10:30 AM CDT Inhaled Oxygen Concentration - - Weight 61.7 kg (136 lb) 11/29/2021 8:57 AM CDT Height 160 cm (5' 2.99) 11/29/2021 8:57 AM CDT Body Mass Index 24.1 11/29/2021 8:57 AM CDT Plan of Treatment Health Maintenance Due Date Last Done Comments HIV for age 15-65 2012 BMI (ht and wt on same day) for age 18+ 12/04/2015 Hepatitis C screening for ag e 18-79 12/04/2015 Depression screening for age 12+ 10/25/2016 10/26/2015, 10/26/2015 Tetanus booster 05/01/2019 05/01/2009 HPV series for age 9-45 (1 - 3-dose SCDM series) 2024 COVID-19 vaccine series (2024- season) 2025 Influenza Vaccine (#1) 2025 1, 05/17/2010, 05/01/2009 Pap test for age 21-65 08/10/2025 08/10/2022 RSV vaccine for adults or (1 - 1-dose 75+ series) 2072 Hepatitis B series for 19+ Completed 11/14, 04/07/1998, 02/03/1998 Pneumococcal series for age 6-49 Aged Out No longer eligible b ased on patient's age to complete this topic Procedures Procedure Name Priority Date/Time Associated Diagnosis Comments REPLANTING MACHINE CREW THIN PREP PAP SCREEN IMAGED Routine 08/10/2022 12:00 PM ENGINE COWLING INSTALLER from Last 3 Months or Most Recently Relevant to Health Maintenance Results * REPLANTING MACHINE CREW THIN PREP PAP SCREEN IMAGED (08/10/2022 12:00 PM ENGINE COWLING INSTALLER) Case Report Gynecologic Cytology Report Case: [id number] Authorizing Provider: Lashawn Stevenson NP Collected: 08/10/2022 1200 Ordering Location: [facility] Received: 08/12/2022 1701 First Screen: Royer Rhoades Specimen: REPLANTING MACHINE CREW ThinPrep Vial Screening, Cervical 08/23/2022 2:40 PM ENGINE COWLING INSTALLER [facility] INTERPRETATION/ RESULT NEGATIVE FOR INTRAEPITHELIAL LESION OR MALIGNANCY (NIL) (none) 08/23/2022 2:40 PM ENGINE COWLING INSTALLER [facility] at 1440 ENGINE COWLING INSTALLER SPECIMEN ADEQUACY Satisfactory for evaluation Endocervical component present 08/23/2022 2:40 PM ENGINE COWLING INSTALLER [facility] HPV REQUEST HPV not requested 2022 2:40 PM ENGINE COWLING INSTALLER [facility] Date of LMP 08/23/2022 2:40 PM ENGINE COWLING INSTALLER [facility] Comment:Jun Last Pap Result First Pap/Unknown 2:40 PM ENGINE COWLING INSTALLER [facility] Abnormal Pap or Roggen Bx in last 5 years No 08/23/2022 2:40 PM ENGINE COWLING INSTALLER [facility] Menstrual Status Irregular Periods 08/23/2022 2:40 PM ENGINE COWLING INSTALLER [facility] Roggen Bx Done Today No 08/23/2022 2:40 PM ENGINE COWLING INSTALLER [facility] Additional Information 08/23/2022 2:40 PM ENGINE COWLING INSTALLER [facility] Comment: Interpreted at [facility] - [address], [place] [address] Automated Review Successful 08/23/2022 2:40 PM ENGINE COWLING INSTALLER [facility] Comment:Specimen processed s uccessfully by automated organizational development manager device, ThinPrep Imaging System, [employer] Note The pap test is a screening technique, not a diagnostic procedure. It is used primarily to screen for squamous cancers and precursor lesions. Published studies have shown that it is subject to both false negative and false positive results. The pap test should not be used as the sole means to diagnose or exclude pre-malignant and malignant lesions. 08/23/2022 2:40 PM ENGINE COWLING INSTALLER [facility] Other (Cervical) 08/10/2022 12:00 PM ENGINE COWLING INSTALLER 08/12/2022 5:01 PM ENGINE COWLING INSTALLER us Lashawn Stevenson NP PATHOLOGY/CYTOLOGY Final Result [facility] [address] [place] [address], [place] from Last 3 Months or Most Recently Relevant to Health Maintenance Insurance [facility] Advance Directives * Full Code (Latest Code Status on File) Date Activated Date Inactivated Comments 11/29/2021 8:36 AM 11/29/2021 12:42 PM Question Answer Comments Code Status Discussion: Not Discussed * Full Code Date Activated Date Inactivated Comments 04/26/2016 6:43 PM 04/26/2016 8:52 PM * Full Code Date Activated Date Inactivated Comments 04/26/2016 5:44 PM 04/26/2016 6:43 PM * Full Code Date Activated Date Inactivated Comments 03/19/2016 9:42 PM 03/20/2016 12:39 AM * Full Code Date Activated Date Inactivated Comments 03/17/2016 1:25 PM 03/17/2016 6:15 PM Care Teams Traditional [facility] Health Practitioner Relationship Specialty [facility] - [facility]21 Bertha Jaime MD Family Practice 11/23/21
[2025-06-24 20:28] VITALS: BP 116/78; PULSE 98; RESP 18; TEMP 36.5; O2SAT 98; BMI 27.4
--- NOTE | 2025-06-24 21:14 | ED_ITS ---
HPI - General Adult General Time Seen by Provider: 21:15 Date Seen: 06/24/25 Chief complaint: Headache/Migraine Stated complaint: Headache/dizziness/weakness Time Seen by Provider: 06/24/25 21:14 Source: patient and family History of Present Illness HPI narrative: Salvador is a 29 yo female who has a past medical history of depression, anxiety, migraines who presents to the emergency department for evaluation of dizziness. Patient reports that she was feeling well earlier today however this evening at around 7:45 a.m. she developed dizziness and feeling as if the room was spinning. Patient reports dizziness/spinning sensation is worse with opening her eyes and moving her head. Better with resting. Patient also complains of headache but is different than her typical migraine headaches. The patient denies any obvious fever, chills Francisco abdomen or. Reports some nausea but denies any vomiting. Patient denies any focal weakness, paresthesias, chest pain, shortness of breath. Patient does report recent upper respiratory infection/cold. No other medications, no substance use, no other complaints. Related Data Home Medications ?Medication ?Instructions ?Recorded ?Confirmed [id number] PO 09/06/23 02/16/24 [Midol Complete] Previous Rx's ?Medication ?Instructions ?Recorded ketorolac 10 mg tablet 10 mg PO TID 5 days #15 tabs 05/12/25 meclizine 25 mg tablet 25 mg PO QID PRN dizziness o r 06/24/25 vertigo #20 tabs Allergies Allergy/AdvReac Type Severity Reaction Status Date / Time ondansetron (From Zofran) Allergy Severe Difficulty Verified 03/26/24 08:00 Breathing Review of Systems Narrative: Past medical history, past surgical history, medications, allergies, family history, and social history were reviewed with the patient. No additional pertinent items. A medically appropriate review of systems was performed with pertinent positives and negatives noted in HPI, all other systems negative. [facility] Medical History Eosinophilic esophagitis (11/29/21) ?K20.0 - Eosinophilic esophagitis (ICD-10) Bipolar I disorder ?F31.9 - Bipolar disorder, unspecified (ICD-10) History of suicidal ideation (10/2015) ?Z86.59 - Personal history of other mental and behavioral disorders (ICD-10) History of migraine headaches ?Z86.69 - Personal history of other diseases of the nervous system and sense organs (ICD-10) Lactose intolerance ?E73.9 - Lactose intolerance, unspecified (ICD-10) Hx of concussion ?Z87.820 - Personal history of traumatic brain injury (ICD-10) GERD (gastroesophageal reflux disease) ?K21.9 - Gastro-esophageal reflux disease without esophagitis (ICD-10) Hx of dysmenorrhea ?Z87.42 - Personal history of other diseases of the female genital tract (ICD-10) History of depression ?Z86.59 - Personal history of other mental and behavioral disorders (ICD-10) History of anxiety ?Z86.59 - Personal history of other mental and behavioral disorders (ICD-10) Surgical History History of endoscopy (11/29/21) ?Z98.890 - Other specified postprocedural states (ICD-10) History of arthroscopy of both knees ?Z98.890 - Other specified postprocedural states (ICD-10) Family History Mother Alcohol abuse Depression Migraines Anxiety Sister ADHD Depression Anxiety Learning disorder Father Alcohol abuse Aunt Depression Anxiety Suicide attempt Paternal Grandmother Dementia Social History Narrative: Vapes. . 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 Smoking Status: Never smoker Do you use any of these nicotine containing products: None How often do you have a drink containing alcohol: never How often do you have six or more drinks on one occasion: Never AUDIT-C Alcohol total score: 0 Non-prescribed substance use: denies use service: No Exam Narrative: Exam Narrative: General: Afebrile, in distress secondary to dizziness which is worse with moving HEENT: Normocephalic, atraumatic, conjunctiva normal. PERRL, MMM Neck: non-tender, supple Cardio: regular rate. regular rhythm Resp: Normal work of breathing, no respiratory distress, lungs clear bilaterally, no wheezing, rhonchi, rales Chest/Back: no visual signs of trauma, no midline tenderness, no CVA tenderness Abdomen: soft, non distension, no tenderness, no peritoneal signs Neuro: alert and fully oriented. CN II-XII intact. Normal strength and sensation in all extremities. MSK: no deformities. Normal range of motion Integumentary/Skin: no rash visualized, normal color Psych: normal affect, normal behavior Const: Vital Signs, click to edit/add: Vital Signs - 24 hr 06/24/25 20:28 06/24/25 23:20 Temperature 97.7 F Pulse Rate [Pulse Oximeter] 98 72 Respiratory Rate 18 16 [facility] 116/78 100/58 L Pulse Oximetry 98 97 Oxygen Delivery Me thod Room Air Room Air Course Vital Signs Vital signs: Initial Vital Signs Temperature 97.7 F 06/24/25 20:28 Temperature Source Temporal Artery Scan 06/24/25 20:28 Pulse Rate 98 06/24/25 20:28 Pulse Rhythm Regular 06/24/25 20:28 Respiratory Rate 18 06/24/25 20:28 Blood Pressure 116/78 06/24/25 20:28 Blood Pressure Mean 90 06/24/25 20:28 Blood Pressure Position Sitting 06/24/25 20:28 Pulse Oximetry 98 06/24/25 20:28 Oxygen Delivery Method Room Air 06/24/25 20:28 Vital Signs Temperature 97.7 F 06/24/25 20:28 Pulse Rate 98 06/24/25 20:28 Respiratory Rate 18 06/24/25 20:28 Blood Pressure 116/78 06/24/25 20:28 Pulse Oximetry 98 06/24/25 20:28 Oxygen Delivery Method Room Air 06/24/25 20:28 Temperature 97.7 F 06/24/25 20:28 Pulse Rate 72 06/24/25 23:20 Respiratory Rate 16 06/24/25 23:20 Blood Pressure 100/58 L 06/24/25 23:20 Pulse Oximetry 97 06/24/25 23:20 Oxygen Delivery Method Room Air 06/24/25 23:20 Medications Administered Medications: Discontinued Medications Generic Name Dose Route Start Last Admin Trade Name Freq PRN Reason Stop Dose Admin Meclizine HCl 50 mg 06/24/25 21:50 06/24/25 21:59 Meclizine Hcl 25 Mg Tablet PO 06/24/25 21:51 50 mg ONCE ONE Administration Medical Decision Making MDM Narrative Medical decision making narrative: Salvador is a 29 yo female who has a past medical history of depression, anxiety, migraines who presents to the emergency department for evaluation of sudden onset of dizziness. Upon arrival patient is nontoxic appearing, afebrile, in distress. Patient reports symptoms are worse with opening her eyes and moving. Suspect likely peripheral etiology/vertigo. Patient is over low risk for central etiology, less likely CVA, no focal neurological deficits. Symptoms are positional. I did consider and recommend IV, comprehensive labs however patient would prefer to hold off if possible. Patient was treated with oral meclizine. On re-evaluation patient does report significant improvement of symptoms and is requesting discharge. Patient would like to hold off any further workup at this time however is agreeable to outpatient follow-up and strict return precautions discussed. Patient is able to ambulate. Plan for discharge home with . Patient and spouse understand and agrees with the plan. Discharge Plan Discharge Clinical Impression: Dizziness Patient Disposition: Home, Self-Care Condition: Improved Instructions: Vertigo (ED), Dizziness (ED) Additional Instructions: Please follow-up with your primary care provider in the next 3-5 days for further evaluation and follow-up. Please call to schedule appointment. Please rest, drink plenty of fluids. Please take meclizine 1 tablet every 6-8 hours as needed for dizziness. Return to the ED if any worsening symptoms. It was a pleasure taking care of you today. We hope you feel better soon Prescriptions: New meclizine 25 mg tablet 25 mg PO QID PRN (Reason: dizziness or vertigo) Qty: 20 0RF No Action [id number] [Midol Complete] PO ketorolac 10 mg tablet 10 mg PO TID 5 Days Qty: 15 0RF Follow Up/Referrals: Pavel Hartman MD [Primary Care Provider, Family Practice] Stand Alone Forms: [employer] Info Instructions
[2025-06-24] MEDS: MECLIZINE HCL 25 MG TABLET 50 MG PO (21:59)
[2025-06-24 23:20] VITALS: BP 100/58; PULSE 72; RESP 16; O2SAT 97
== END 2025-06-24 23:47 | disposition home or self-care (01) ==
PROVIDERS: Emergency Provider Emergency Medicine; PCP Family Medicine
DX: R42 Dizziness and giddiness (principal)
CPT/HCPCS: 99283; 99285; A9270

== ENCOUNTER 2025-07-02 07:53 | Outpatient (CLI) | payer SELFPAY | END 2025-07-02 07:54 | disposition home or self-care (01) | LOC: NFLDREF 07-09 08:38 | PROVIDERS: PCP Nurse Practitioner Family; Visit Provider Nurse Practitioner Family | DX: D64.9 Anemia, unspecified (principal) | CPT/HCPCS: 82728; 83540; 83550 ==